=== PATIENT | female | born 1985 | race Caucasian/White ===

== ENCOUNTER 2023-02-05 21:36 | Emergency (ER) | payer OTHER ==
[~2023-02-05] VITALS: Ht 157.5 cm; Wt 51.4 kg
[2023-02-05 22:44] LABS: BASO # 0.07 K/mm3 (0.02-0.10); EOS # 0.06 K/mm3 (0.04-0.40); EOS % 0.3 % (1.0-5.0); HEMATOCRIT 39.2 % (37.0-47.0); HEMOGLOBIN 13.1 g/dL (12.5-16.0); LYMPH# 1.82 K/mm3 (1.50-4.00); MEAN CELL VOLUME 95 fl (78-100); MEAN CORPUSCULAR HEMOGLOBIN 32 pg (27-31); MEAN CORPUSCULAR HGB CONC 33 g/dL (33-37); MEAN PLATELET VOLUME 9.3 fl (7.4-10.4); MONO # 1.11 K/mm3 (0.20-0.80); NEU # 16.03 K/mm3 (1.40-6.50); PLATELET COUNT 347 K/mm3 (130-400); RED BLOOD COUNT 4.12 M/mm3 (4.10-5.30); RED CELL DISTRIBUTION WIDTH 11.6 % (11.5-14.5); WHITE BLOOD COUNT 19.1 K/mm3 (4.8-10.8)
[2023-02-05 22:47] LABS: ALBUMIN 4.3 g/dL (3.5-5.0)
[2023-02-05 22:48] LABS: CALCIUM 9.2 mg/dL (8.3-10.5)
[2023-02-05 22:50] LABS: TOTAL PROTEIN 7.1 g/dL (6.4-8.3)
[2023-02-05 22:51] LABS: TOTAL BILIRUBIN 0.5 mg/dL (0.2-1.2)
[2023-02-05 22:56] LABS: PH-URINE 5.5 (5.0 - 8.0); URINE APPEARANCE CLOUDY (CLEAR); URINE BILIRUBIN 1+ (NEGATIVE); URINE COLOR YELLOW (YELLOW); URINE GLUCOSE NEGATIVE (NEGATIVE); URINE KETONE 2+ (NEGATIVE); URINE PROTEIN(semi-quant) 1+ (NEGATIVE)
[2023-02-05 22:57] LABS: URINE NITRATE NEGATIVE (NEGATIVE)
[2023-02-05 22:58] LABS: URINE BLOOD TRACE (NEGATIVE); URINE LEUKOCYTE ESTERASE NEGATIVE (NEGATIVE)
[2023-02-05 23:03] LABS: URINE MUCUS PRESENT (NOT PRESENT)
[2023-02-05] MEDS ORDERED: LEVO-T50 MCG (23:12)
[2023-02-05] MEDS ORDERED: ADDERALL 20 MG20 MG (23:12)
[2023-02-05] MEDS ORDERED: ADDERALL 10 MG10 MG (23:13)
[2023-02-06 00:22] VITALS: BP 113/76
[2023-02-09] MEDS ORDERED: CEPHALEXIN500 M1 PO (16:24)
== END 2023-02-06 00:28 | disposition home or self-care (01) ==
LOC: ED 21:36
PROVIDERS: Nurse Practitioner Family
DX: N13.2 Hydronephrosis with renal and ureteral calculous obstruction (principal)
CPT/HCPCS: J1200; J1885; J2405; J7030